=== PATIENT | female | born 1985 | race Caucasian/White ===

== ENCOUNTER 2024-01-15 08:35 | Day surgery (SDC) | payer BC, SELFPAY ==
[2024-01-15 08:52] VITALS: BP 160/99; PULSE 87; RESP 16; TEMP 36.9; O2SAT 100; BMI 25.4
--- NOTE | 2024-01-15 09:20 | LES_PTH ---
PATIENT: CECILE HARRELL LOC: [facility] U#:[id number] AGE/SX: 39/F ROOM: RE01/15/[address]: Dr. Marlene Cole MD : 1985 BED: DIS: 01/15/2024 SPEC #: [id number] RECD: 01/15/24 12:34 STATUS: ROSAMARIA RECynthia #: [id number] KEE: 01/15/24 09:[address]: Marlene Cole DEPT: SURGICAL PATHOLOGY RECD BY: Deepali Isaac ENTERED: 01/15/24 14:06 SP TYPE: Lesion OTHR DR: Kirstin Guevara, KAUR Tissues: A - Skin of leg, NOS B - Skin of leg, NOS Procedures: Surgery Specimen Level IV HEADER OPERATION: Shave lesion left gonzales and right thigh PRE-OP DIAGNOSIS: Neoplasm of uncertain behavior of skin TISSUE SUBMITTED: A- Left lower leg gonzales lesion, B- Right thigh lesion MICROSCOPIC DIAGNOSIS A. Skin lesion of left lower gonzales, shave biopsy: Focal actinic change. Dermal fibrosis See comment. B. Skin lesion of right thigh, shave biopsy: Actinic keratosis. 01/18/2024 COMMENT A. Dermal fibrosis is suggestive of a dermatofibroma. Clinical correlation is suggested. Case has been reviewed in consultation with Dr. Riley who concurs with the above diagnosis. IDC:SJ MICROSCOPIC DESCRIPTION Slides are reviewed. GROSS DESCRIPTION A. Received in fixative is one container labeled with the patient's name and designated Left lower leg gonzales lesion. The specimen consists of two shave biopsies of carpenter-white irregular skin measuring 1.5 x 0.5 x 0.1cm and 1.2 x 0.6 x 0.1cm. Both pieces are inked and serially sectioned . The entire specimen is submitted in two cassettes with each cassette containing one piece. B. Received in fixative is one container labeled with the patient's name and designated Right thigh lesion. The specimen consists of a piece of carpenter-white skin measuring 0.5 x 0.3 x 0.1cm. The specimen is inked, bisected and submitted entirely in one cassette. SJ 01/15/2024 TC:5 CPT:33071p8
--- NOTE | 2024-01-15 09:29 | PCM.HP.BLA ---
History and Physical Date of Admission: 01/15/24 The patient is examined and there are no changes to the H&P dated 01/13/2024. She presents for shave excision of a lesion of her left leg and right thigh. Informed consent was obtained. Assessment & Plan Assessment/Plan (1) Neoplasm of uncertain behavior of skin: PLAN: Plan For shave excision lesion of the left leg and right thigh
[2024-01-15 10:10] VITALS: BP 134/100; BP 135/90; BP 138/86; BP 147/91; O2SAT 100; O2SAT 99
[2024-01-15] MEDS: Lidocaine 1% /Epi 1:100 9 ML, Sodium Bicarbonate 1 MEQ OPERA.SITE (10:30)
[2024-01-15] MEDS: Bacitracin 500 UNITS/GM PACKET (10:32)
--- NOTE | 2024-01-15 10:36 | EX.PCM.DISCH ---
Discharge Instructions Dressing / Incision Additional Dressing/Incision Instructions:: Change the Band-Aids daily and apply a thin layer of antibiotic ointment. When there is no further drainage, you may leave the Band-Aids off. Take the oral antibiotic (Keflex) 2 times a day until finished. Follow Up Care Please Follow Up With: Marlene Cole MD When: In 1 to 2 weeks Test Results: Test results from this visit will be discussed in further detail at your follow-up appointment, if applicable. Discharge Plan Admission Attending Provider: Marlene Cole Primary Care Provider: Kirstin Guevraa Instructions Print Language: Mongolian Discharge Orders/Prescriptions Prescriptions: New cephalexin 500 mg capsule 500 mg PO BID 5 Days Qty: 10 0RF No Action hydroxychloroquine [Plaquenil] 200 mg tablet 200 mg PO QDAY desloratadine [Clarinex] 5 mg tablet 5 mg PO QDAY celecoxib [Celebrex] 100 mg capsule 100 mg PO BID alprazolam [Xanax] 0.5 mg tablet 0.5 mg PO QHS PRN (Reason: anxiety) multivitamin Tablet 1 tab PO QDAY cholecalciferol (vitamin D3) 25 mcg (1,000 unit) capsule 25 mcg PO QDAY almotriptan malate 12.5 mg tablet 12.5 mg PO ONCE PRN (Reason: migraine headache) Ubrelvy 100 mg tablet 100 mg PO ONCE PRN (Reason: migraine headache) Rx Instructions: as a single dose; may repeat once in >=2 hours after first dose if needed Referrals / Follow Up: Kirstin Guevara, [employer] [Primary Care Provider] - Disposition Disposition (needs filled in before D/C Order can be placed): Home, Self Care
--- NOTE | 2024-01-15 10:38 | PCM.OPRPT ---
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 She presents for shave excision of these lesions with submission for pathologic evaluation. She is aware the potential need for further surgery depending on the resulting path. Patient is brought to the operating room and placed on the operating room table in supine position. The left lower leg and right thigh are prepped and draped in the usual sterile fashion. 1% Xylocaine with epinephrine buffered with sodium bicarb is used for local anesthetic. Following this, the lesion of the left lower leg is shaved at the base. The base is then full rise. Antibiotic ointment and a Band-Aid placed on the site. We then directed our attention to the lesion of the right thigh and after this is anesthetized with 1% Xylocaine with epinephrine, it is shaved at the base and the base full rise. Antibiotic ointment and a Band-Aid are placed on the site. She tolerated the procedure well was taken to the recovery area in an awake and stable condition. Needle and sponge counts are correct. Complications None Admit VTE Documentation VTE Mechan Device Prophylaxis: None Reason prophylaxis not ordered:: Treatment Not Indicated
[2024-01-15 10:47] VITALS: BP 152/79; PULSE 75; RESP 16; TEMP 36.3; O2SAT 100
--- NOTE | 2024-01-15 10:58 | SUR.PHASEII ---
dr sams spoke with pt
== END 2024-01-15 10:57 | disposition home or self-care (01) ==
LOC: SDC 08:37 → AC 08:38
PROVIDERS: PCP Nurse Practitioner Family; Referring Provider Plastic Surgery; Visit Provider Plastic Surgery
PROC: (CPT 11303; principal; 2024-01-15 09:10)
DX: D48.5 Neoplasm of uncertain behavior of skin (principal); L90.5 Scar conditions and fibrosis of skin; L57.0 Actinic keratosis
CPT/HCPCS: 11303; 88305